=== PATIENT | female | born 1955 | race Asian ===

== ENCOUNTER 2017-06-10 18:00 | Emergency (ER) | payer SELFPAY ==
[~2017-06-10] VITALS: Ht 160 cm; Wt 87.2 kg
[~2017-06-10 18:00] MED LIST: ACET325T33 PO; ALBU18HF INHALATION; ASPI81TA3 PO; ATEN50TA PO; ATOR10TA65 PO; BCL80INH INH; FAMO10TA84 PO; FEBU80TA PO; LORA10CA PO; LOSA50TA6 PO; METF500T4 PO; PHEN-616 PO; POTA10TA18 PO; TRIA1TAB PO
[2017-06-10 18:32] VITALS: Ht 160 cm; Wt 87.2 kg
== END 2017-06-11 00:54 | disposition left against medical advice (07) ==
LOC: E/R 18:00
DX: Z53.21 Procedure and treatment not carried out due to patient leaving prior to being seen by health care provider (principal)